=== PATIENT | male | born 1975 | race Caucasian/White ===

== ENCOUNTER → 2019-12-30 17:54 | Outpatient (CLI) | payer OTHER, SELFPAY ==
--- NOTE | 2019-12-30 18:02 | DI.RAD.S_ITS ---
PROCEDURE: XR THORACIC SPINE 3V INDICATIONS: Upper back pain TECHNIQUE: 3 views of the thoracic spine were acquired. COMPARISON: None. FINDINGS: Bones: No fractures or dislocations. No suspicious bony lesions. 12 pairs of ribs are noted, and appear intact where visualized. Minimal disc space narrowing is present. Anterior osteophytes are present the upper lumbar spine. Soft tissues: No paravertebral stripe thickening. IMPRESSION: No acute osseous abnormality. Dictated by: Jerrica Dan M.D. on 12/31/2019 at 14:38 Approved by: Jerrica Dan M.D. on 12/31/2019 at 14:38
== END ==
PROVIDERS: PCP Internal Medicine; Referring Provider Internal Medicine; Visit Provider Internal Medicine
DX: M54.6 Pain in thoracic spine (principal)
CPT/HCPCS: 72072